=== PATIENT | male | born 1970 | race Caucasian/White ===

== ENCOUNTER 2022-06-07 08:26 | Day surgery (SDC) | payer OTHER ==
[~2022-06-07 08:26] MED LIST: Lactated Ringers 1,000 ML IV SCH; Lidocaine 1%/Sod Bicarbonate in NS 8.4% 1 ML Syringe IDERM PRN; Sodium Chloride 0.9% 10 ML Syringe FLUSH PRN; Sodium Chloride 0.9% 10 ML Syringe FLUSH SCH
[2022-06-07] MEDS ORDERED: Lidocaine 1% with EPINEPHrine 1:100,000 20 ML MDV ONE (08:56)
[2022-06-07] MEDS ORDERED: Bupivacaine 0.5%/EPINEPHrine 1:200,000 50 ML MDV ONE (08:56)
[2022-06-07] MEDS ORDERED: Ondansetron 4 MG/2 ML SDV IVPUSH PRN (09:03)
[2022-06-07] MEDS ORDERED: HYDROmorphone 0.5 MG/0.5 ML Syringe IVPUSH PRN (09:03)
[2022-06-07] MEDS ORDERED: fentaNYL 100 MCG/2 ML SDV IVPUSH PRN (09:03)
[2022-06-07] MEDS ORDERED: Sugammadex Sodium 200 MG/2 ML VIAL ONE (09:07)
[2022-06-07] MEDS ORDERED: Midazolam 1 MG/ML 2 ML SDV ONE (09:08)
[2022-06-07] MEDS ORDERED: Propofol 200 MG/20 ML SDV ONE ×2 (09:08)
[2022-06-07] MEDS ORDERED: Lidocaine 1% 2 ML ONE (09:09)
[2022-06-07] MEDS ORDERED: fentaNYL 250 MCG/5 ML SDV ONE (09:09)
[2022-06-07] MEDS ORDERED: Rocuronium 50 MG/5 ML Vial ONE (09:10)
[2022-06-07] MEDS ORDERED: ceFAZolin 2 GM Vial ONE (09:23)
[2022-06-07] MEDS ORDERED: Dexamethasone 4 MG/ML 5 ML MDV ONE (10:16)
[2022-06-07] MEDS ORDERED: Labetalol 100 MG/20 ML MDV ONE (10:16)
[2022-06-07] MEDS ORDERED: Ondansetron 4 MG/2 ML SDV ONE (10:16)
[2022-06-07] MEDS ORDERED: Ketorolac 30 MG/ML SDV ONE (10:16)
[2022-06-07] MEDS ORDERED: Acetaminophen/HYDROcodone 325-5 MG Tab PO PRN (10:55)
== END 2022-06-07 13:00 | disposition home or self-care (01) ==
LOC: JD.SDS 08:26
PROVIDERS: ATTEND Surgery
DX: K40.90 Unilateral inguinal hernia, without obstruction or gangrene, not specified as recurrent (principal); I10 Essential (primary) hypertension; E78.00 Pure hypercholesterolemia, unspecified; E87.5 Hyperkalemia; E11.65 Type 2 diabetes mellitus with hyperglycemia; B30.9 Viral conjunctivitis, unspecified; R79.89 Other specified abnormal findings of blood chemistry; Z79.899 Other long term (current) drug therapy; Z79.84 Long term (current) use of oral hypoglycemic drugs; Z98.890 Other specified postprocedural states
CPT/HCPCS: 49650; 82947; A9270; J0690; J1100; J1885; J2250; J2405; J2704; J3010; J3490; J7120; 00840; C1781

== ENCOUNTER 2022-12-13 08:35 | Day surgery (SDC) | payer OTHER ==
[~2022-12-13 08:35] MED LIST changes: -Lidocaine 1%/Sod Bicarbonate in NS 8.4% 1 ML Syringe IDERM PRN
[2022-12-13] MEDS ORDERED: Propofol 200 MG/20 ML SDV ONE (09:30)
[2022-12-13] MEDS ORDERED: fentaNYL 100 MCG/2 ML SDV ONE (09:31)
[2022-12-13] MEDS ORDERED: Midazolam 1 MG/ML 2 ML SDV ONE (09:31)
[2022-12-13] MEDS ORDERED: Lidocaine 1% 4 ML ONE (09:38)
== END 2022-12-13 11:05 | disposition home or self-care (01) ==
LOC: JD.SDS 08:35
PROVIDERS: ATTEND Surgery
DX: Z12.11 Encounter for screening for malignant neoplasm of colon (principal); I10 Essential (primary) hypertension; E78.00 Pure hypercholesterolemia, unspecified; E78.2 Mixed hyperlipidemia; E11.9 Type 2 diabetes mellitus without complications; Z79.84 Long term (current) use of oral hypoglycemic drugs; Z79.899 Other long term (current) drug therapy; Z79.85 Long-term (current) use of injectable non-insulin antidiabetic drugs; Z98.890 Other specified postprocedural states
CPT/HCPCS: 45378; 82947; J2704; J3010; J7120; J2250; J3490